=== PATIENT | male | born 1960 | race Caucasian/White ===

== ENCOUNTER 2023-11-03 15:23 | Observation (INO) | payer OTHER ==
--- NOTE | 2023-11-03 15:49 | ERPHSYRPT ---
- History of Present Illness Time Seen by Provider: 11/03/23 15:47 Source: patient Exam Limitations: no limitations Physician History: 62-year-old male presents to our emergency department for evaluation of chest pain. Chest pain started 3 days ago and has been constant. No trauma no fever no associated nausea vomiting or diaphoresis. Symptoms are moderate in intensi ty. No specific worsening or improving factors. Patient denies history of the same. He otherwise feels well. Mother at bedside. They voiced no other complaints or concerns at this time. Portions of this note were created with voice recognition technology. There may be grammatical, spelling, punctuation or sound alike errors Timing/Duration: day(s) Severity: moderate (3 days ago) Modifying Factors: Improves With: nothing Associated Symptoms: denies symptoms Allergies/Adverse Reactions: No Known Drug Allergies Allergy (Verified 11/03/23 15:45) Home Medications: Amlodipine Besylate [Norvasc] 2.5 mg PO DAILY 11/03/23 [History] Aspirin EC 81 mg [Ecotrin 81 mg] 81 mg PO DAILY 11/03/23 [History] - Review of Systems Constitutional: No Symptoms, No Fever, No Chills Eyes: No Symptoms Ears, Nose, & Throat: No Symptoms Respiratory: No Symptoms, No Cough, No Dyspnea Cardiac: No Symptoms, No Chest Pain, No Edema, No Syncope Abdominal/Gastrointestinal: No Symptoms, No Abdominal Pain, No Nausea, No Vomiting, No Diarrhea Genitourinary Symptoms: No Symptoms, No Dysuria Musculoskeletal: No Symptoms, No Back Pain, No Neck Pain Skin: No Symptoms, No Rash Neurological: No Symptoms, No Dizziness, No Focal Weakness, No Sensory Changes Psychological: No Symptoms Endocrine: No Symptoms Hematologic/Lymphatic: No Symptoms Immunological/Allergic: No Symptoms All Other Systems: Reviewed and Negative - Past Medical History Neurological History: No Pertinent History Cardiac History: Hypertension Respiratory History: No Pertinent History Endocrine Medical History: Other Musculoskeletal History: No Pertinent History Other Medical History: LIVER PROBLEMS, HEP C TREATED. - Nursing Vital Signs Nursing Vital Signs: Initial Vital Signs Temperature 97.7 F 11/03/23 15:29 Pulse Rate 104 H 11/03/23 15:29 Respiratory Rate 18 11/03/23 15:29 Blood Pressure 163/92 11/03/23 15:29 O2 Sat by Pulse Oximetry 96 11/03/23 15:29 Pain Scale Pain Intensity 4 - Physical Exam General Appearance: no apparent distress, alert Eye Exam: PERRL/EOMI, eyes nml inspection Ears, Nose, Throat Exam: normal ENT inspection, TMs normal, pharynx normal, moist mucous membranes Neck Exam: normal inspection, non-tender, supple, full range of motion Respiratory Exam: normal breath sounds, lungs clear, airway intact, No respiratory distress Cardiovascular Exam: regular rate/rhythm, normal heart sounds, normal peripheral pulses Gastrointestinal/Abdomen Exam: soft, normal bowel sounds, No tenderness, No mass Back Exam: normal inspection, normal range of motion, No CVA tenderness, No vertebral tenderness Extremity Exam: normal inspection, normal range of motion, pelvis stable Neurologic Exam: alert, oriented x 3, cooperative, normal mood/affect, sensation nml, No motor deficits Skin Exam: normal color, warm, dry, No rash Lymphatic Exam: No adenopathy SpO2 Interpretation: normal SpO2: 98 O2 Delivery: Room Air - Course Nursing assessment & vital signs reviewed: Yes EKG Interpreted by Me: RATE (98), Sinus Rhythm, NORMAL AXIS, NORMAL INTERVALS - CT Exams Chest CT Interpretation: Tele-radiologist Report (No pulmonary embolism no acute abnormalities) Ordered Tests: Active Orders 24 hr Category Date Time Status Pastry Mixer STAT Care 11/03/23 15:40 Active EKG-ER Only STAT Care 11/03/23 15:39 Active IV Insertion STAT Care 11/03/23 15:39 Active Pulse Oximetry (ED) STAT Care 11/03/23 15:39 Active Heart-Healthy Diet Diet 11/04/23 Breakfast Active Heart-Healthy Diet Diet 11/04/23 Dinner Active Heart-Healthy Diet Diet 11/04/23 Lunch Active CHEST 2 VIEWS (PA AND LAT) Stat Exams 11/03/23 23:21 Ordered CHEST WITH CONTRAST [CT] Stat Exams 11/03/23 22:03 Completed ECHO W/2D AND DOPPLER [US] Routine Exams 11/03/23 23:22 Ordered BMP AM.LAB Lab 11/04/23 04:00 Ordered CBC AM.LAB Lab 11/04/23 04:00 Ordered CBC W DIFF Stat Lab 11/03/23 15:55 Completed CMP AM.LAB Lab 11/04/23 04:00 Ordered CMP Stat Lab 11/03/23 15:55 Completed D-DIMER QUANTITATIVE Stat Lab 11/03/23 21:15 Completed MAGNESIUM Stat Lab 11/03/23 15:55 Completed NT PRO BNPII Stat Lab 11/03/23 15:55 Completed TROPONIN Q4H Lab 11/03/23 15:55 Completed TROPONIN Q4H Lab 11/03/23 19:33 Completed TROPONIN Q4H Lab 11/03/23 23:30 Received TSH, 3RD Generation Stat Lab 11/03/23 15:55 Completed Transfer Order Routine Transfer 11/03/23 Ordered Medication Summary Generic Name Dose Route Start Last Admin Trade Name Luisq PRN Reason Stop Dose Admin Enoxaparin Sodium 40 mg 11/04/23 10:00 Enoxaparin Sodium 40 Mg/0.4 Ml Syringe SQ 12/04/23 09:59 DAILY DONNIE Famotidine 20 mg 11/04/23 10:00 Famotidine 20 Mg Tablet PO 12/04/23 09:59 BID DONNIE Magnesium Sulfate/Dextrose 100 mls @ 100 mls/hr 11/03/23 18:45 11/03/23 19:54 Magnesium 1 Gm / 100 Ml D5w IV 11/03/23 20:44 100 mls/hr Q1H DONNIE Administration Sodium Chloride 1,000 mls @ 100 mls/hr 11/03/23 23:30 Sodium Chloride 0.9% 1000 Ml IV 12/03/23 23:29 .Q10H DONNIE Discontinued Medications Generic Name Dose Route Start Last Admin Trade Name Kellie PRN Reason Stop Dose Admin Sodium Chloride 1,000 mls @ 150 mls/hr 11/03/23 21:15 11/03/23 21:06 Sodium Chloride 0.9% 1000 Ml IV 12/03/23 21:14 150 mls/hr .[id number] DONNIE Administration Lab/Rad Data: Laboratory Result Diagrams 11/03/23 15:55 11/03/23 15:55 Laboratory Results 11/03/23 11/03/23 11/03/23 Range/Units 21:15 19:33 15:55 WBC (4.0-10.5) x10^3/uL RBC (4.1-5.6) x10^6/uL Hgb (12.5-18.0) g/dL Hct (42-50) % MCV (78-100) fL MCH (26-32) pg MCHC (32-36) g/dL RDW (11.5-14.0) % Plt Count (150-450) x10^3/uL MPV (7.5-11.0) fL Gran % (36.0-66.0) % Immature Gran % (Auto) (0.00-0.4) % Nucleat RBC Rel Count (0.00-0.1) % Eos # (Auto) (0-0.5) x10^3/uL Immature Gran # (Auto) (0.00-0.03) x10^3u/L Absolute Lymphs (auto) (1.0-4.6) x10^3/uL Absolute Monos (auto) (0.0-1.3) x10^3/uL Absolute Nucleated RBC (0.00-0.01) x10^3u/L Lymphocytes % (24.0-44.0) % Monocytes % (0.0-12.0) % Eosinophils % (0.00-5.0) % Basophils % (0.0-0.4) % Absolute Granulocytes (1.4-6.9) x10^3/uL Basophils # (0-0.4) x10^3/uL D-Dimer 1.24 H* (0.0-0.50) mg/L Sodium (135-145) mmol/L Potassium (3.5-5.1) mmol/L Chloride (98-107) mmol/L Carbon Dioxide (22-30) mmol/L Anion Gap (5-15) MEQ/L BUN (9-20) mg/dL Creatinine (0.66-1.25) mg/dL Estimated GFR ML/MIN Glucose (74-106) mg/dL Calcium (8.4-10.2) mg/dL Magnesium (1.6-2.3) mg/dL Total Bilirubin (0.2-1.3) mg/dL AST (17-59) U/L ALT (0-50) U/L Alkaline Phosphatase (38-126) U/L Troponin I < 0.012 < 0.012 (0.000-0.033) ng/mL NT-Pro-B Natriuret Pep (<300) pg/mL Serum Total Protein (6.3-8.2) g/dL Albumin (3.5-5.0) g/dL TSH 3rd Generation (0.470-4.680) mIU/L 11/03/23 11/03/23 Range/Units 15:55 15:55 WBC 8.1 (4.0-10.5) x10^3/uL RBC 4.22 (4.1-5.6) x10^6/uL Hgb 14.6 (12.5-18.0) g/dL Hct 41.2 L (42-50) % MCV 97.6 (78-100) fL MCH 34.6 H (26-32) pg MCHC 35.4 (32-36) g/dL RDW 12.0 (11.5-14.0) % Plt Count 220 (150-450) x10^3/uL MPV 9.8 (7.5-11.0) fL Gran % 59.6 (36.0-66.0) % Immature Gran % (Auto) 0.6 H (0.00-0.4) % Nucleat RBC Rel Count 0.0 (0.00-0.1) % Eos # (Auto) 0.08 (0-0.5) x10^3/uL Immature Gran # (Auto) 0.05 H (0.00-0.03) x10^3u/L Absolute Lymphs (auto) 2.29 (1.0-4.6) x10^3/uL Absolute Monos (auto) 0.78 (0.0-1.3) x10^3/uL Absolute Nucleated RBC 0.00 (0.00-0.01) x10^3u/L Lymphocytes % 28.2 (24.0-44.0) % Monocytes % 9.6 (0.0-12.0) % Eosinophils % 1.0 (0.00-5.0) % Basophils % 1.0 (0.0-0.4) % Absolute Granulocytes 4.84 (1.4-6.9) x10^3/uL Basophils # 0.08 (0-0.4) x10^3/uL D-Dimer (0.0-0.50) mg/L Sodium 128 L (135-145) mmol/L Potassium 4.8 (3.5-5.1) mmol/L Chloride 95 L (98-107) mmol/L Carbon Dioxide 23 (22-30) mmol/L Anion Gap 14.9 (5-15) MEQ/L BUN 10 (9-20) mg/dL Creatinine 0.92 (0.66-1.25) mg/dL Estimated GFR 92.9 ML/MIN Glucose 115 H (74-106) mg/dL Calcium 9.4 (8.4-10.2) mg/dL Magnesium 1.5 L (1.6-2.3) mg/dL Total Bilirubin 1.40 H (0.2-1.3) mg/dL AST 149 H (17-59) U/L ALT 94 H (0-50) U/L Alkaline Phosphatase 106 (38-126) U/L Troponin I (0.000-0.033) ng/mL NT-Pro-B Natriuret Pep 427 (<300) pg/mL Serum Total Protein 7.8 (6.3-8.2) g/dL Albumin 4.1 (3.5-5.0) g/dL TSH 3rd Generation 1.022 (0.470-4.680) mIU/L - Progress Progress: improved Progress Note: Patient accepted at [address] Vargas accepting physician request starting fluids normal saline at 150 cc/h. Magnesium low at 1.5. 2 g magnesium ordered. Plan of care discussed with patient. He agrees to admission [facility] for further evaluation and treatment. 11/03/23 21:02 11/03/23 21:02 Counseled pt/family regarding: lab results, diagnosis, rad results - Departure Departure Disposition: Observation Clinical Impression: Chest pain, ACS (acute coronary syndrome), Hyponatremia, Hypomagnesemia, Hyperbilirubinemia, Transaminitis Condition: Stable Critical Care Time: No Additional Instructions: Discharge/Care Plan LU LUZ was seen on 11/03/23 in the Emergency Room. The patient was counseled regarding Diagnosis,Lab results, Imaging studies, need for follow up and when to return to the Emergency Room. Prescriptions given: Discharge Note I have spoken with the patient and/or caregivers. I have explained the patient's condition, diagnosis and treatment plan based on the information available to me at this time. I have answered the patient's and/or caregiver's questions and addressed any concerns. The patient and/or caregivers have as good understanding of the patient's diagnosis, condition and treatment plan as can be expected at this point. The vital signs have been stable. The patient's condition is stable and appropriate for discharge from the emergency department. The patient will pursue further outpatient evaluation with the primary care physician or other designated or consulting physician as outlined in the discharge instructions. The patient and/or caregivers are agreeable to this plan of care and follow-up instructions have been explained in detail. The patient and/or caregivers have received these instruction. The patient/and or caregivers are aware that any significant change in condition or worsening of symptoms should prompt an immediate return to this or the closest emergency department or call 911.
[2023-11-03 15:54] LABS: Absolute Neutrophil Ct (ANC) 4.84 x10^3/uL (1.4-6.9); Basophil (Absolute #) 0.08 x10^3/uL (0-0.4); Eosinophil (Absolute #) 0.08 x10^3/uL (0-0.5); Hematocrit 41.2 % (42-50); Hemoglobin 14.6 g/dL (12.5-18.0); IMMATURE GRAN # 0.05 x10^3u/L (0.00-0.03); IMMATURE GRAN % 0.6 % (0.00-0.4); Lymphocyte (Absolute #) 2.29 x10^3/uL (1.0-4.6); Lymphocytes % 28.2 % (24.0-44.0); Mean Cell Volume 97.6 fL (78-100); Mean Corpuscular Hemoglobin 34.6 pg (26-32); Mean Corpuscular Hgb Concent. 35.4 g/dL (32-36); Mean Platelet Volume 9.8 fL (7.5-11.0); Monocyte (Absolute #) 0.78 x10^3/uL (0.0-1.3); Monocytes % 9.6 % (0.0-12.0); Neutrophil % 59.6 % (36.0-66.0); Platelet Count 220 x10^3/uL (150-450); Red Blood Count 4.22 x10^6/uL (4.1-5.6); White Blood Count 8.1 x10^3/uL (4.0-10.5)
[2023-11-03 16:39] LABS: ALBUMIN 4.1 g/dL (3.5-5.0); ANION GAP 14.9 MEQ/L (5-15); BILIRUBIN,TOTAL 1.4 mg/dL (0.2-1.3); Calcium 9.4 mg/dL (8.4-10.2); Creatinine 1 0.92 mg/dL (0.66-1.25); EST GLOMERULAR FILTRATION RATE 92.9 ML/MIN; MAGNESIUM 1.5 mg/dL (1.6-2.3); Potassium 4.8 mmol/L (3.5-5.1); TSH, 3RD Generation 1.022 mIU/L (0.470-4.680); Total Protein 7.8 g/dL (6.3-8.2)
[2023-11-03] MEDS ORDERED: Magnesium 1 Gm / 100 Ml D5W*** 100 ML IV ONE ×2 (19:15→19:53)
[2023-11-03] MEDS: Magnesium 1 Gm / 100 Ml D5W*** 100 ML IV SCH (19:16)
[2023-11-03] MEDS ORDERED: Sodium Chloride 0.9% 1000 ML 1,000 ML ONE ×2 (21:04→23:48)
[2023-11-03] MEDS: Sodium Chloride 0.9% 1000 ML 1,000 ML IV SCH (21:06)
--- NOTE | 2023-11-03 22:59 | PCM.HP ---
History of Present Illness - Chief Complaint Chief Complaint: Chest pain Date: 11/03/23 History of Present Illness: is a 62 year old male with no significant PMH except hypertension came to ER with new onset of chest pain located in central chest area with out radiation to left arm, jaw, neck/back, no SOB no sweating .Denied having GERD like SX, did c/o some Nausea and vomiting for 2 days but no abd pain or diarrhea noted.He is active smoker 1pp/day but no h/o COPD. In the ER the V/s were stable, lab w/u was remarkable for low sodium, low Mag , Mildly elevated LFTS, Troponi 2 sets were -ve, BNP 427, pt admitted for rule out ACS - Review of Systems Cardiac: Chest Pain Medications & Allergies Home Medications: Home Medication List Amlodipine Besylate [Norvasc] 2.5 mg PO DAILY 11/03/23 [History Confirmed 11/03/23] Aspirin EC 81 mg [Ecotrin 81 mg] 81 mg PO DAILY 11/03/23 [History Confirmed 11/03/23] Losartan Potassium [Cozaar] 50 mg PO BID 11/04/23 [History Confirmed 11/04/23] Metoprolol Tartrate 50 mg [Lopressor 50 MG] 50 mg PO BID 11/04/23 [History Confirmed 11/04/23] Allergies/Adverse Reactions: Allergies Allergy/AdvReac Type Severity Reaction Status Date / Time No Known Drug Allergies Allergy Verified 11/04/23 00:44 - Past Medical History Past Medical History: Yes Neurological History: No Pertinent History ENT History: Cataracts Cardiac History: Hypertension Respiratory History: No Pertinent History Endocrine Medical History: Other Musculoskelatal History: No Pertinent History GI Medical History: Hepatitis, Hernia Comment: LIVER PROBLEMS, HEP C TREATED. - Past Surgical History Past Surgical History: Yes GI Surgical History: Hernia Repair - Social History Smoking Status: Current every day smoker Exposure to second hand smoke: No Alcohol: Daily Drug Use: none - Social Determinants of Health Will the patient participate in the screening: Yes Do you worry about a steady place to live?: No Do you have any problems with any of the following?: No known problems In the past 12 months,have you had to go without utilities?: No Have you or anyone in your house had to go without enough: No Transportation Issues: No Has anyone in your support network made you feel unsafe?: No - Physical Exam Vital Signs: Vital Signs - 24 hr Temp Pulse Resp BP BP Pulse Ox 11/03/23 22:20 84 18 132/80 99 11/03/23 22:19 95 H 23 142/85 100 11/03/23 21:30 86 22 109/69 100 11/03/23 21:09 98 11/03/23 21:00 100 H 18 114/68 97 11/03/23 20:30 82 18 119/75 100 11/03/23 20:01 88 20 139/114 99 11/03/23 19:30 89 20 132/99 98 11/03/23 19:00 91 H 18 136/88 97 11/03/23 17:00 90 23 98 11/03/23 16:50 95 H 25 H 97 11/03/23 16:40 90 20 98 11/03/23 16:30 94 H 17 97 11/03/23 16:20 107 H 18 11/03/23 16:10 92 H 19 96 11/03/23 16:02 100 H 16 98 11/03/23 15:53 98 11/03/23 15:39 105 H 26 H 174/120 96 11/03/23 15:29 97.7 F 104 H 18 163/92 96 Additional Findings: 11/03/23 22:58 HEENT Middle aged, average built in no distress NECK Supple,no thyromegaly, CVS S1+S2 + 0, no murmers RESP Bilateral equal air entry without Crepts/Wheezes heard GIT Soft non tender,non distended Skin, No rah, no Bruises LEGS No Edema PSYCH Normal,m ood, judgement and insight NEURO AOX3, no focal deficit Results - Labs Lab/Micro Results: Lab Results-Last 24 Hours 11/03/23 11/03/23 11/03/23 Range/Units 15:55 15:55 15:55 WBC 8.1 (4.0-10.5) x10^3/uL RBC 4.22 (4.1-5.6) x10^6/uL Hgb 14.6 (12.5-18.0) g/dL Hct 41.2 L (42-50) % MCV 97.6 (78-100) fL MCH 34.6 H (26-32) pg MCHC 35.4 (32-36) g/dL RDW 12.0 (11.5-14.0) % Plt Count 220 (150-450) x10^3/uL MPV 9.8 (7.5-11.0) fL Gran % 59.6 (36.0-66.0) % Immature Gran % (Auto) 0.6 H (0.00-0.4) % Nucleat RBC Rel Count 0.0 (0.00-0.1) % Eos # (Auto) 0.08 (0-0.5) x10^3/uL Immature Gran # (Auto) 0.05 H (0.00-0.03) x10^3u/L Absolute Lymphs (auto) 2.29 (1.0-4.6) x10^3/uL Absolute Monos (auto) 0.78 (0.0-1.3) x10^3/uL Absolute Nucleated RBC 0.00 (0.00-0.01) x10^3u/L Lymphocytes % 28.2 (24.0-44.0) % Monocytes % 9.6 (0.0-12.0) % Eosinophils % 1.0 (0.00-5.0) % Basophils % 1.0 (0.0-0.4) % Absolute Granulocytes 4.84 (1.4-6.9) x10^3/uL Basophils # 0.08 (0-0.4) x10^3/uL D-Dimer (0.0-0.50) mg/L Sodium 128 L (135-145) mmol/L Potassium 4.8 (3.5-5.1) mmol/L Chloride 95 L (98-107) mmol/L Carbon Dioxide 23 (22-30) mmol/L Anion Gap 14.9 (5-15) MEQ/L BUN 10 (9-20) mg/dL Creatinine 0.92 (0.66-1.25) mg/dL Estimated GFR 92.9 ML/MIN Glucose 115 H (74-106) mg/dL Calcium 9.4 (8.4-10.2) mg/dL Magnesium 1.5 L (1.6-2.3) mg/dL Total Bilirubin 1.40 H (0.2-1.3) mg/dL AST 149 H (17-59) U/L ALT 94 H (0-50) U/L Alkaline Phosphatase 106 (38-126) U/L Troponin I < 0.012 (0.000-0.033) ng/mL NT-Pro-B Natriuret Pep 427 (<300) pg/mL Serum Total Protein 7.8 (6.3-8.2) g/dL Albumin 4.1 (3.5-5.0) g/dL TSH 3rd Generation 1.022 (0.470-4.680) mIU/L 11/03/23 11/03/23 Range/Units 19:33 21:15 WBC (4.0-10.5) x10^3/uL RBC (4.1-5.6) x10^6/uL Hgb (12.5-18.0) g/dL Hct (42-50) % MCV (78-100) fL MCH (26-32) pg MCHC (32-36) g/dL RDW (11.5-14.0) % Plt Count (150-450) x10^3/uL MPV (7.5-11.0) fL Gran % (36.0-66.0) % Immature Gran % (Auto) (0.00-0.4) % Nucleat RBC Rel Count (0.00-0.1) % Eos # (Auto) (0-0.5) x10^3/uL Immature Gran # (Auto) (0.00-0.03) x10^3u/L Absolute Lymphs (auto) (1.0-4.6) x10^3/uL Absolute Monos (auto) (0.0-1.3) x10^3/uL Absolute Nucleated RBC (0.00-0.01) x10^3u/L Lymphocytes % (24.0-44.0) % Monocytes % (0.0-12.0) % Eosinophils % (0.00-5.0) % Basophils % (0.0-0.4) % Absolute Granulocytes (1.4-6.9) x10^3/uL Basophils # (0-0.4) x10^3/uL D-Dimer 1.24 H* (0.0-0.50) mg/L Sodium (135-145) mmol/L Potassium (3.5-5.1) mmol/L Chloride (98-107) mmol/L Carbon Dioxide (22-30) mmol/L Anion Gap (5-15) MEQ/L BUN (9-20) mg/dL Creatinine (0.66-1.25) mg/dL Estimated GFR ML/MIN Glucose (74-106) mg/dL Calcium (8.4-10.2) mg/dL Magnesium (1.6-2.3) mg/dL Total Bilirubin (0.2-1.3) mg/dL AST (17-59) U/L ALT (0-50) U/L Alkaline Phosphatase (38-126) U/L Troponin I < 0.012 (0.000-0.033) ng/mL NT-Pro-B Natriuret Pep (<300) pg/mL Serum Total Protein (6.3-8.2) g/dL Albumin (3.5-5.0) g/dL TSH 3rd Generation (0.470-4.680) mIU/L - Radiology Impressions Radiology Exams & Impressions: Radiology Procedures Category Date Time Status CHEST WITH CONTRAST [CT] Stat Exams 11/03/23 22:03 Taken Assessment/Plan (1) Chest pain Current Visit: Yes Status: Acute Code(s): R07.9 - CHEST PAIN, UNSPECIFIED (2) Hyponatremia Current Visit: Yes Status: Acute Code(s): E87.1 - HYPO-OSMOLALITY AND HYPONATREMIA (3) Hyperbilirubinemia Current Visit: Yes Status: Acute Code(s): E80.6 - OTHER DISORDERS OF BILIRUBIN METABOLISM (4) Transaminitis Current Visit: Yes Status: Acute Code(s): R74.01 - ELEVATION OF LEVELS OF LIVER TRANSAMINASE LEVELS Telemedicine Encounter - Telemedicine Encounter Telemedicine Encounter: The entirety of this encounter was performed via Telemedicine" Acute Chest pain Admit on tele to r/o for ACS Tropnin 2 sets are -ve will get ECHO Aspirin given in ER Hypertension Stable, running towards softer side will resume home meds amlodipine only iwill keep holding losartan and Metoprolol for now Hydralazine as per need >180 Hyponatremia Seems hypovoluemic hyponatremia due to underlying N/V will c/w gentle hydration recheck Na in am Elevated LFTS Will check Hep panel C/w hydration Keep avoiding hepatotoxins Hypomagnesemia Mag reported low Replaced it with IV mag Active smoker Smokes 1pp/day Needs counseling to quit smoking DVT PPX Lovenox GIT PPX will add Pepcid Code status Full code D/c planning, Pending clinical stability
--- NOTE | 2023-11-03 23:37 | XRAY ---
CLINICAL HISTORY: CP,ELEVATED DDIMER COMPARISON: None. TECHNIQUE: CT of the chest was performed with IV contrast following PE protocol with coronal and sagittal reconstructions. One of the following dose reduction techniques was utilized for this exam: Automated exposure control, adjustment of the mA and/or kV according to patient size, and use of iterative reconstruction. FINDINGS: Adequate opacification of the pulmonary arterial vasculature. No evidence of pulmonary embolism. No right heart strain. The lung keen show no nodule or mass. No consolidation. Mild burden of paraseptal emphysematous changes is seen in both upper lobes. No interstitial lung disease. Mild bibasilar atelectasis is seen in posterior segments of both lower lobes. No pleural effusions. No pneumothorax. No acute abnormality in mediastinum. No acute destructive lesion in the bones. Normal soft tissues. No acute abnormality in the visualized upper abdomen. IMPRESSION: No pulmonary embolism. No acute pulmonary abnormality. Electronically Signed by: Dede Gaytan MD. (11/03/2023 23:32:19 EDT)
[2023-11-04] MEDS: Sodium Chloride 0.9% 1000 ML 1,000 ML IV SCH ×2 (01:10→01:11)
[2023-11-04 06:03] LABS: Absolute Neutrophil Ct (ANC) 3.25 x10^3/uL (1.4-6.9); Basophil (Absolute #) 0.07 x10^3/uL (0-0.4); Eosinophil % 2.3 % (0.00-5.0); Eosinophil (Absolute #) 0.16 x10^3/uL (0-0.5); Hematocrit 33.6 % (42-50); IMMATURE GRAN # 0.04 x10^3u/L (0.00-0.03); IMMATURE GRAN % 0.6 % (0.00-0.4); Lymphocyte (Absolute #) 2.75 x10^3/uL (1.0-4.6); Mean Corpuscular Hemoglobin 34.3 pg (26-32); Mean Corpuscular Hgb Concent. 35.7 g/dL (32-36); Mean Platelet Volume 9.9 fL (7.5-11.0); Monocyte (Absolute #) 0.61 x10^3/uL (0.0-1.3); Monocytes % 8.9 % (0.0-12.0); Neutrophil % 47.2 % (36.0-66.0); Platelet Count 179 x10^3/uL (150-450); Red Cell Distribution Width 12.3 % (11.5-14.0); White Blood Count 6.9 x10^3/uL (4.0-10.5)
[2023-11-04 06:12] LABS: ALBUMIN 3.5 g/dL (3.5-5.0); ANION GAP 11.7 MEQ/L (5-15); BILIRUBIN,TOTAL 1.1 mg/dL (0.2-1.3); Calcium 8.5 mg/dL (8.4-10.2); Creatinine 1 0.87 mg/dL (0.66-1.25); EST GLOMERULAR FILTRATION RATE 96.4 ML/MIN; Potassium 4.1 mmol/L (3.5-5.1); Total Protein 6.9 g/dL (6.3-8.2)
[2023-11-04 07:36] VITALS: RESP 16
[2023-11-04] MEDS: Nicoderm CQ 21 MG TOP SCH (09:16)
[2023-11-04] MEDS: ENOXAPARIN SODIUM SQ SCH (09:16)
[2023-11-04] MEDS: ECOTRIN 81 MG PO SCH (09:16)
[2023-11-04] MEDS: NORVASC 5 MG PO SCH (09:16)
[2023-11-04] MEDS: Pepcid 20 MG PO SCH (09:16)
[2023-11-04] MEDS ORDERED: Valium 5 MG PO PRN (09:25)
[2023-11-04] MEDS ORDERED: Pepcid 20 MG PO SCH (10:00)
[2023-11-04] MEDS ORDERED: ENOXAPARIN SODIUM SQ SCH (10:00)
[2023-11-04] MEDS ORDERED: NON-FORMULARY ITEM (Amlodipine Besylate [Norvasc] 2.5 MG Tablet) PO SCH (10:00)
[2023-11-04] MEDS ORDERED: ECOTRIN 81 MG PO SCH (10:00)
--- NOTE | 2023-11-04 10:18 | XRAY ---
Indication: Chest pain. Comparison: December 10, 2018 PA/lateral chest remains hyperinflated and clear. Heart not enlarged. Bony thorax intact with new healing left lateral 7/8 rib fractures.
[2023-11-04] MEDS: VITAMIN B-1 100 MG PO SCH (10:50)
[2023-11-04] MEDS: THERAGRAN MULTIVITAMIN PO SCH (10:50)
[2023-11-04] MEDS: FOLATE 1 MG PO SCH (10:50)
[2023-11-04 11:38] VITALS: BP 140/90; PULSE 79; TEMP 98.7; O2SAT 95
--- NOTE | 2023-11-04 11:57 | XRAY ---
Indication: Elevated liver enzymes. Two-dimensional right upper quadrant abdominal sonogram performed. Comparison: March 18, 2021 Visualized liver again diffusely fatty in echogenicity with stable 9 mm right lobe cyst. No new focal solid/cystic hepatic mass, hepatomegaly, or free fluid. Gallbladder mildly distended without gallstones, wall thickening, or pericholecystic fluid. Common bile duct measures 7 mm. No intrahepatic biliary distention. Remaining visualized pancreas and right kidney are sonographically unremarkable. Right kidney measures 9.7 x 4.1 x 4.1 cm. Impression: Again fatty liver and tiny hepatic cyst. Remaining right upper quadrant sonogram is negative.
--- NOTE | 2023-11-04 12:00 | PCM.DS ---
Discharge Summary Date of Admission: 11/04/23 00:12 Date of Discharge: 11/04/23 Admitting Physician: VANCE SAINZ MD Primary Care Provider: FATMATA REDD Allergies Allergies No Known Drug Allergies Allergy (Verified 11/04/23 00:44) Hospital Summary - Hospital Course Hospital Course: is a 62 year old male with PMHX of daily drink ( 6 pack per day), hepatitis (with treatment), liver problems, daily smoker, and hypertension. He came to ER with new onset of chest pain located in central chest area without radiation to left arm, jaw, neck/back, no SOB no sweating. Denied having GERD like SX. He did c/o some nausea and vomiting for 2 days but no abd. pain or diarrhea noted. He is active smoker 1pp/day but no h/o COPD. In the ER the V/s were stable, lab w/u was remarkable for low sodium, low Mag , Mildly elevated LFTS, Troponins negative, BNP 427, pt admitted for rule out ACS. Trop x3 negative. Echo shows EF 65% Na+ this am was [address] on fluid restriction and IVF stopped. Low sodium likely from ETOH use hx. US orderded for further eval of elevated liver enzymes. Hep c panel ordered. If all Ok then will d/c today and will need OP F/U. Pt reports he follows Dr. Hinson for cardiology. Pt was able to work with pt today and stated he did well and he is to continue to f/u OP. - Vitals & Intake/Output Vital Signs: Vital Signs Temperature 98.7 F 11/04/23 11:36 Pulse Rate 79 11/04/23 11:36 Respiratory Rate 16 11/04/23 11:36 Blood Pressure 140/90 11/04/23 11:36 O2 Sat by Pulse Oximetry 95 11/04/23 11:36 Intake & Output: Intake & Output 11/01/23 11/02/23 11/03/23 11/04/23 11:59 11:59 11:59 11:59 Intake Total 433 Balance 433 Weight 48.8 kg - Lab Result Diagrams: 11/04/23 06:00 11/04/23 06:00 Lab Results-Last 24 Hrs: Lab Results-Last 24 Hours 11/03/23 11/03/23 11/03/23 Range/Units 15:55 15:55 15:55 WBC 8.1 (4.0-10.5) x10^3/uL RBC 4.22 (4.1-5.6) x10^6/uL Hgb 14.6 (12.5-18.0) g/dL Hct 41.2 L (42-50) % MCV 97.6 (78-100) fL MCH 34.6 H (26-32) pg MCHC 35.4 (32-36) g/dL RDW 12.0 (11.5-14.0) % Plt Count 220 (150-450) x10^3/uL MPV 9.8 (7.5-11.0) fL Gran % 59.6 (36.0-66.0) % Immature Gran % (Auto) 0.6 H (0.00-0.4) % Nucleat RBC Rel Count 0.0 (0.00-0.1) % Eos # (Auto) 0.08 (0-0.5) x10^3/uL Immature Gran # (Auto) 0.05 H (0.00-0.03) x10^3u/L Absolute Lymphs (auto) 2.29 (1.0-4.6) x10^3/uL Absolute Monos (auto) 0.78 (0.0-1.3) x10^3/uL Absolute Nucleated RBC 0.00 (0.00-0.01) x10^3u/L Lymphocytes % 28.2 (24.0-44.0) % Monocytes % 9.6 (0.0-12.0) % Eosinophils % 1.0 (0.00-5.0) % Basophils % 1.0 (0.0-0.4) % Absolute Granulocytes 4.84 (1.4-6.9) x10^3/uL Basophils # 0.08 (0-0.4) x10^3/uL D-Dimer (0.0-0.50) mg/L Sodium 128 L (135-145) mmol/L Potassium 4.8 (3.5-5.1) mmol/L Chloride 95 L (98-107) mmol/L Carbon Dioxide 23 (22-30) mmol/L Anion Gap 14.9 (5-15) MEQ/L BUN 10 (9-20) mg/dL Creatinine 0.92 (0.66-1.25) mg/dL Estimated GFR 92.9 ML/MIN Glucose 115 H (74-106) mg/dL Calcium 9.4 (8.4-10.2) mg/dL Magnesium 1.5 L (1.6-2.3) mg/dL Total Bilirubin 1.40 H (0.2-1.3) mg/dL AST 149 H (17-59) U/L ALT 94 H (0-50) U/L Alkaline Phosphatase 106 (38-126) U/L Troponin I < 0.012 (0.000-0.033) ng/mL NT-Pro-B Natriuret Pep 427 (<300) pg/mL Serum Total Protein 7.8 (6.3-8.2) g/dL Albumin 4.1 (3.5-5.0) g/dL TSH 3rd Generation 1.022 (0.470-4.680) mIU/L Ethyl Alcohol (0-10) mg/dL 11/03/23 11/03/23 11/03/23 Range/Units 19:33 21:15 23:30 WBC (4.0-10.5) x10^3/uL RBC (4.1-5.6) x10^6/uL Hgb (12.5-18.0) g/dL Hct (42-50) % MCV (78-100) fL MCH (26-32) pg MCHC (32-36) g/dL RDW (11.5-14.0) % Plt Count (150-450) x10^3/uL MPV (7.5-11.0) fL Gran % (36.0-66.0) % Immature Gran % (Auto) (0.00-0.4) % Nucleat RBC Rel Count (0.00-0.1) % Eos # (Auto) (0-0.5) x10^3/uL Immature Gran # (Auto) (0.00-0.03) x10^3u/L Absolute Lymphs (auto) (1.0-4.6) x10^3/uL Absolute Monos (auto) (0.0-1.3) x10^3/uL Absolute Nucleated RBC (0.00-0.01) x10^3u/L Lymphocytes % (24.0-44.0) % Monocytes % (0.0-12.0) % Eosinophils % (0.00-5.0) % Basophils % (0.0-0.4) % Absolute Granulocytes (1.4-6.9) x10^3/uL Basophils # (0-0.4) x10^3/uL D-Dimer 1.24 H* (0.0-0.50) mg/L Sodium (135-145) mmol/L Potassium (3.5-5.1) mmol/L Chloride (98-107) mmol/L Carbon Dioxide (22-30) mmol/L Anion Gap (5-15) MEQ/L BUN (9-20) mg/dL Creatinine (0.66-1.25) mg/dL Estimated GFR ML/MIN Glucose (74-106) mg/dL Calcium (8.4-10.2) mg/dL Magnesium (1.6-2.3) mg/dL Total Bilirubin (0.2-1.3) mg/dL AST (17-59) U/L ALT (0-50) U/L Alkaline Phosphatase (38-126) U/L Troponin I < 0.012 < 0.012 (0.000-0.033) ng/mL NT-Pro-B Natriuret Pep (<300) pg/mL Serum Total Protein (6.3-8.2) g/dL Albumin (3.5-5.0) g/dL TSH 3rd Generation (0.470-4.680) mIU/L Ethyl Alcohol (0-10) mg/dL 11/04/23 11/04/23 11/04/23 Range/Units 06:00 06:00 06:00 WBC 6.9 (4.0-10.5) x10^3/uL RBC 3.50 L (4.1-5.6) x10^6/uL Hgb 12.0 L (12.5-18.0) g/dL Hct 33.6 L (42-50) % MCV 96.0 (78-100) fL MCH 34.3 H (26-32) pg MCHC 35.7 (32-36) g/dL RDW 12.3 (11.5-14.0) % Plt Count 179 (150-450) x10^3/uL MPV 9.9 (7.5-11.0) fL Gran % 47.2 (36.0-66.0) % Immature Gran % (Auto) 0.6 H (0.00-0.4) % Nucleat RBC Rel Count 0.0 (0.00-0.1) % Eos # (Auto) 0.16 (0-0.5) x10^3/uL Immature Gran # (Auto) 0.04 H (0.00-0.03) x10^3u/L Absolute Lymphs (auto) 2.75 (1.0-4.6) x10^3/uL Absolute Monos (auto) 0.61 (0.0-1.3) x10^3/uL Absolute Nucleated RBC 0.00 (0.00-0.01) x10^3u/L Lymphocytes % 40.0 (24.0-44.0) % Monocytes % 8.9 (0.0-12.0) % Eosinophils % 2.3 (0.00-5.0) % Basophils % 1.0 (0.0-0.4) % Absolute Granulocytes 3.25 (1.4-6.9) x10^3/uL Basophils # 0.07 (0-0.4) x10^3/uL D-Dimer (0.0-0.50) mg/L Sodium 128 L (135-145) mmol/L Potassium 4.1 (3.5-5.1) mmol/L Chloride 99 (98-107) mmol/L Carbon Dioxide 22 (22-30) mmol/L Anion Gap 11.7 (5-15) MEQ/L BUN 14 (9-20) mg/dL Creatinine 0.87 (0.66-1.25) mg/dL Estimated GFR 96.4 ML/MIN Glucose 98 (74-106) mg/dL Calcium 8.5 (8.4-10.2) mg/dL Magnesium 1.9 (1.6-2.3) mg/dL Total Bilirubin 1.10 (0.2-1.3) mg/dL AST 115 H (17-59) U/L ALT 80 H (0-50) U/L Alkaline Phosphatase 92 (38-126) U/L Troponin I (0.000-0.033) ng/mL NT-Pro-B Natriuret Pep (<300) pg/mL Serum Total Protein 6.9 (6.3-8.2) g/dL Albumin 3.5 (3.5-5.0) g/dL TSH 3rd Generation (0.470-4.680) mIU/L Ethyl Alcohol (0-10) mg/dL 11/04/23 Range/Units 06:00 WBC (4.0-10.5) x10^3/uL RBC (4.1-5.6) x10^6/uL Hgb (12.5-18.0) g/dL Hct (42-50) % MCV (78-100) fL MCH (26-32) pg MCHC (32-36) g/dL RDW (11.5-14.0) % Plt Count (150-450) x10^3/uL MPV (7.5-11.0) fL Gran % (36.0-66.0) % Immature Gran % (Auto) (0.00-0.4) % Nucleat RBC Rel Count (0.00-0.1) % Eos # (Auto) (0-0.5) x10^3/uL Immature Gran # (Auto) (0.00-0.03) x10^3u/L Absolute Lymphs (auto) (1.0-4.6) x10^3/uL Absolute Monos (auto) (0.0-1.3) x10^3/uL Absolute Nucleated RBC (0.00-0.01) x10^3u/L Lymphocytes % (24.0-44.0) % Monocytes % (0.0-12.0) % Eosinophils % (0.00-5.0) % Basophils % (0.0-0.4) % Absolute Granulocytes (1.4-6.9) x10^3/uL Basophils # (0-0.4) x10^3/uL D-Dimer (0.0-0.50) mg/L Sodium (135-145) mmol/L Potassium (3.5-5.1) mmol/L Chloride (98-107) mmol/L Carbon Dioxide (22-30) mmol/L Anion Gap (5-15) MEQ/L BUN (9-20) mg/dL Creatinine (0.66-1.25) mg/dL Estimated GFR ML/MIN Glucose (74-106) mg/dL Calcium (8.4-10.2) mg/dL Magnesium (1.6-2.3) mg/dL Total Bilirubin (0.2-1.3) mg/dL AST (17-59) U/L ALT (0-50) U/L Alkaline Phosphatase (38-126) U/L Troponin I (0.000-0.033) ng/mL NT-Pro-B Natriuret Pep (<300) pg/mL Serum Total Protein (6.3-8.2) g/dL Albumin (3.5-5.0) g/dL TSH 3rd Generation (0.470-4.680) mIU/L Ethyl Alcohol < 10 (0-10) mg/dL - Radiology Exams Ordered Rad Exams-Entire Visit: Radiology Procedures Category Date Time Status CHEST 2 VIEWS (PA AND LAT) Routine Exams 11/04/23 00:58 Completed CHEST WITH CONTRAST [CT] Stat Exams 11/03/23 22:03 Completed ECHO W/2D AND DOPPLER [US] Stat Exams 11/04/23 01:02 Taken LIVER OR SPLEEN [US] Routine Exams 11/04/23 07:45 Taken - Procedures and Test Procedures and Tests throughout Hospitalization: Therapy Orders & Screens 11/04/23 00:43 Smoking Cessation Education ONCE Comment: Diagnosis: Acute coronary syndrome, chest pain, hypomagnesemia hypokalemia Smoking Status: Current every day smoker How long have you smoked: 40 Do you dip or chew tobacco: No 11/04/23 09:21 PT Eval & Treat ( Order) ONCE Reason for Eval:: Pt states he has trouble wit hhis legs and cannot walk. He does not know why. Eval for needs- placement. Diagnosis: Chest pain Discharge Exam General Appearance: no apparent distress, alert Neurologic Exam: alert, oriented x 3, cooperative, normal mood/affect, nml cerebellar function, sensation nml, No motor deficits Eye Exam: PERRL, EOMI, eyes nml inspection Ears, Nose, Throat Exam: normal ENT inspection, pharynx normal, moist mucous membranes Neck Exam: normal inspection, non-tender, supple, full range of motion Respiratory Exam: normal breath sounds, lungs clear, No respiratory distress Cardiovascular Exam: regular rate/rhythm, normal heart sounds Gastrointestinal/Abdomen Exam: soft, No tenderness, No mass Male Genitalia Exam: deferred Rectal Exam: deferred Back Exam: normal inspection, normal range of motion, No CVA tenderness, No vertebral tenderness Extremity Exam: normal inspection, normal range of motion Skin Exam: normal color, warm, dry Final Diagnosis/Problem List - Final Discharge Diagnosis/Problem (1) Chest pain Current Visit: Yes Status: Acute Assessment & Plan: - Trop x 3 negative - d-dimer 1.24 - Chest CT: IMPRESSION: No pulmonary embolism. No acute pulmonary abnormality. - Chest XR: PA/lateral chest remains hyperinflated and clear. Heart not enlarged. Bony thorax intact with new healing left lateral 7/8 rib fractures. - Echo EF 65% - Will need OP f/u with Dr. Hinson- cardiology - Will need Op f/u with Pulm- for PFT testing Code(s): R07.9 - CHEST PAIN, UNSPECIFIED (2) Hyperbilirubinemia Current Visit: Yes Status: Resolved Assessment & Plan: - resolved Code(s): E80.6 - OTHER DISORDERS OF BILIRUBIN METABOLISM (3) Hypomagnesemia Current Visit: Yes Status: Resolved Assessment & Plan: - resolved Code(s): E83.42 - HYPOMAGNESEMIA (4) Hyponatremia Current Visit: Yes Status: Acute Assessment & Plan: - Na+ 128 today - Fluid restriction - likely from chronic ETOH use - IVF stopped - PT eval for associated weakness, pt did well, f/u OP as scheduled - will recheck Na+ later today. Code(s): E87.1 - HYPO-OSMOLALITY AND HYPONATREMIA (5) Smoker Current Visit: Yes Status: Chronic Assessment & Plan: - advised cessation - Nicotine patch Code(s): F17.200 - NICOTINE DEPENDENCE, UNSPECIFIED, UNCOMPLICATED (6) EtOH dependence Current Visit: Yes Status: Chronic Assessment & Plan: - alcohol withdrawl protocol - denies withdrawl sxs today Code(s): F10.20 - ALCOHOL DEPENDENCE, UNCOMPLICATED (7) Rib fractures Current Visit: Yes Status: Acute Assessment & Plan: - seen on CT - appear to be healing- may be cause of CP - Take OTC tylenol for pain - Pt admits to falling at home. - No narcotic RX d/t ETOH use Op Code(s): S22.49XA - MULTIPLE FRACTURES OF RIBS, UNSP SIDE, INIT FOR CLOS FX (8) Elevated liver enzymes Current Visit: Yes Status: Acute Assessment & Plan: - Denies abd pain, N/V/D or dyspepsia - AST 115, ALT 80 - ETOH use - Hep. Panel- will need Op f/u with PCP as labs are not back - US liver: Visualized liver again diffusely fatty in echogenicity with stable 9 mm right lobe cyst. No new focal solid/cystic hepatic mass, hepatomegaly, or free fluid. Gallbladder mildly distended without gallstones, wall thickening, or pericholecystic fluid. Common bile duct measures 7 mm. No intrahepatic biliary distention. Remaining visualized pancreas and right kidney are sonographically unremarkable. Right kidney measures 9.7 x 4.1 x 4.1 cm. Impression: Again fatty liver and tiny hepatic cyst. Remaining right upper quadrant sonogram is negative - Will need OP GI f/u for elevated liver enzymes - Will make OP appointment for GS f/u of distended gallbladder Code(s): R74.8 - ABNORMAL LEVELS OF OTHER SERUM ENZYMES - Discharge Discharge Date: 11/04/23 Disposition: Home, Self-Care Condition: Stable Prescriptions: New RX: Thiamine HCl 100 mg [Vitamin B-1 100 mg] 100 mg PO DAILY 30 Days #30 tablet Continue RX: Amlodipine Besylate [Norvasc] 2.5 mg PO DAILY RX: Aspirin EC 81 mg [Ecotrin 81 mg] 81 mg PO DAILY RX: Losartan Potassium [Cozaar] 50 mg PO BID RX: Metoprolol Tartrate 50 mg [Lopressor 50 MG] 50 mg PO BID Additional Instructions: Discharge/Care Plan LU LUZ was seen on 11/03/23 in the Emergency Room. The patient was counseled regarding Diagnosis,Lab results, Imaging studies, need for follow up and when to return to the Emergency Room. Prescriptions given: Discharge Note I have spoken with the patient and/or caregivers. I have explained the patient's condition, diagnosis and treatment plan based on the information available to me at this time. I have answered the patient's and/or caregiver's questions and addressed any concerns. The patient and/or caregivers have as good understanding of the patient's diagnosis, condition and treatment plan as can be expected at this point. The vital signs have been stable. The patient's condition is stable and appropriate for discharge from the emergency department. The patient will pursue further outpatient evaluation with the primary care physician or other designated or consulting physician as outlined in the discharge instructions. The patient and/or caregivers are agreeable to this plan of care and follow-up instructions have been explained in detail. The patient and/or caregivers have received these instruction. The patient/and or caregivers are aware that any significant change in condition or worsening of symptoms should prompt an immediate return to this or the closest emergency department or call 911. Follow up with: FATMATA REDD [Primary Care Provider] - Follow up/PCP as directed
--- NOTE | 2023-11-04 13:50 | ECHO ---
Transthoracic echocardiographic examination and color Doppler was done on 11/04/2023. INDICATION: Chest pain. IMPRESSION: 1) NO REGIONAL WALL MOTION ABNORMALITY. ESTIMATED GLOBAL LEFT VENTRICULAR EJECTION FRACTION OF AROUND 60%. 2) TRACE TRICUSPID REGURGITATION. RIGHT VENTRICULAR SYSTOLIC PRESSURE OF 31 MM OF MERCURY. 3) LEFT VENTRICULAR HYPERTROPHY. The left ventricle is visualized and demonstrated adequate motion of all the segments. Estimated global left ventricular ejection fraction around 60 to 65%. There is mild left ventricular hypertrophy. The mitral valve is seen and this opens adequately. No significant mitral regurgitation is seen. The aortic valve opens adequately. There is no significant gradient across the left ventricular outflow tract. The right side chambers appear to be normal. There is trace tricuspid regurgitation. The right ventricular systolic pressure of 31 mm of Mercury. There is a questionable echo density in the right atrium. Further interrogation is suggested.
== END 2023-11-04 16:13 | disposition home or self-care (01) ==
LOC: ED 15:23 → MED SURG 21:17 → UNDOADMOB 21:17 → MED SURG 11-04 00:12
PROVIDERS: ADMIT Internal Medicine; ATTEND Internal Medicine
DX: R07.9 Chest pain, unspecified (principal); F17.200 Nicotine dependence, unspecified, uncomplicated; E80.6 Other disorders of bilirubin metabolism; E83.42 Hypomagnesemia; E87.1 Hypo-osmolality and hyponatremia; F10.20 Alcohol dependence, uncomplicated; S22.49XA Multiple fractures of ribs, unspecified side, initial encounter for closed fracture; R74.8 Abnormal levels of other serum enzymes; I10 Essential (primary) hypertension; Z79.899 Other long term (current) drug therapy
CPT/HCPCS: 36000; 36415; 71046; 71260; 76705; 80053; 80074; 82077; 83735; 83880; 84295; 84443; 84484; 85025; 85379; 93005; 93041; 93306; 94760; 99285; J1650; J3475; Q3014; A9270-GY